=== PATIENT | male | born 1955 | race Caucasian/White ===

== ENCOUNTER → 2020-05-07 | Outpatient (CLI) | payer BC | LOC: KOH-I 15:53 | DX: M51.16 Intervertebral disc disorders with radiculopathy, lumbar region (principal); M41.9 Scoliosis, unspecified; M47.26 Other spondylosis with radiculopathy, lumbar region | CPT/HCPCS: 72148 ==

== ENCOUNTER → 2020-11-19 | Outpatient (CLI) | payer BC | LOC: MRI 12:53 | DX: Z01.818 Encounter for other preprocedural examination (principal); M51.34 Other intervertebral disc degeneration, thoracic region; M51.36 Other intervertebral disc degeneration, lumbar region; M47.814 Spondylosis without myelopathy or radiculopathy, thoracic region; M48.04 Spinal stenosis, thoracic region; M85.80 Other specified disorders of bone density and structure, unspecified site | CPT/HCPCS: 72128; 72131; 72146; 77080 ==

== ENCOUNTER → 2021-05-06 | Outpatient (CLI) | payer BC ==
[2021-05-06 17:08] LABS: HEMOGLOBIN 14.7 gm/dl (14.0-17.5); RED BLOOD COUNT 4.45 M/UL (4.20-5.50); WHITE BLOOD COUNT 4.7 K/UL (4.5-11.0)
[2021-05-08 09:14] LABS: A/G RATIO 1.6 (1.2-2.2); ALKALINE PHOSPHATASE, S 77 IU/L (44-121); ALT (SGPT) 19 IU/L (0-44); AST (SGOT) 19 IU/L (0-40); BILIRUBIN, TOTAL 0.4 mg/dL (0.0-1.2); BUN 11 mg/dL (8-27); BUN/CREATININE RATIO 12 (10-24); CALCIUM, SERUM 9.2 mg/dL (8.6-10.2); CARBON DIOXIDE, TOTAL 24 mmol/L (20-29); CHLORIDE, SERUM 100 mmol/L (96-106); CHOLESTEROL, TOTAL 183 mg/dL (100-199); CREATININE, SERUM 0.92 mg/dL (0.76-1.27); EGFR IF AFRICN AM 99 (>59); EGFR IF NONAFRICN AM 86 (>59); GLOBULIN, TOTAL 2.7 g/dL (1.5-4.5); GLUCOSE, SERUM 99 mg/dL (65-99); HDL CHOLESTEROL 65 mg/dL (>39); LDL CHOLESTEROL CALC 107 mg/dL (0-99); LDL/HDL RATIO 1.6 ratio (0.0-3.6); POTASSIUM, SERUM 4.3 mmol/L (3.5-5.2); PROTEIN, TOTAL, SERUM 7.1 g/dL (6.0-8.5); SODIUM, SERUM 139 mmol/L (134-144); T. CHOL/HDL RATIO 2.8 ratio (0.0-5.0); TRIGLYCERIDES 60 mg/dL (0-149)
[2021-05-08 10:14] LABS: IRON, SERUM 48 ug/dL (38-169); THYROXINE (T4) 9.7 ug/dL (4.5-12.0)
== END ==
LOC: LAB 15:53
PROVIDERS: Family Medicine
DX: Z01.818 Encounter for other preprocedural examination (principal); Z12.5 Encounter for screening for malignant neoplasm of prostate; R00.1 Bradycardia, unspecified; D50.9 Iron deficiency anemia, unspecified; E03.9 Hypothyroidism, unspecified; E78.5 Hyperlipidemia, unspecified; R53.81 Other malaise
CPT/HCPCS: 36415; 71046; 80053; 80061; 83540; 84153; 84436; 84439; 84443; 85027; 85610; 85730; 93005

== ENCOUNTER → 2021-05-27 | Outpatient (CLI) | payer BC ==
[~2021-05-27] MED LIST: LEVOTHYROXINE75 MC1 PO; MEN'S MULTIVIT1 EACH PO
[2021-05-27 13:04] LABS: HEMOGLOBIN 14.6 gm/dl (14.0-17.5); RED BLOOD COUNT 4.34 M/UL (4.20-5.50); WHITE BLOOD COUNT 4.4 K/UL (4.5-11.0)
[2021-05-27 13:37] LABS: BUN/CREATININE RATIO 14 (0-10)
== END ==
LOC: EDSTATUS 12:00 → OPSV2 12:00
PROVIDERS: Orthopaedic Surgery
DX: Z01.812 Encounter for preprocedural laboratory examination (principal); M48.061 Spinal stenosis, lumbar region without neurogenic claudication; M41.86 Other forms of scoliosis, lumbar region
CPT/HCPCS: 80048; 81001; 85025; 85610; 85730; 87081

== ENCOUNTER 2021-06-08 05:24 | Inpatient (IN) | payer BC, MEDICARE ==
[~2021-06-08] VITALS: Ht 177.8 cm; Wt 98.0 kg
[2021-06-08 11:32] LABS: RED BLOOD COUNT 3.68 M/UL (4.20-5.50); WHITE BLOOD COUNT 4.6 K/UL (4.5-11.0)
[2021-06-08 17:52] LABS: HEMOGLOBIN 11.2 gm/dl (14.0-17.5); RED BLOOD COUNT 3.35 M/UL (4.20-5.50)
[2021-06-08 17:54] LABS: WHITE BLOOD COUNT 12.2 K/UL (4.5-11.0)
[2021-06-08 19:30] LABS: HEMOGLOBIN 11.9 gm/dl (14.0-17.5); RED BLOOD COUNT 3.56 M/UL (4.20-5.50); WHITE BLOOD COUNT 10.5 K/UL (4.5-11.0)
[2021-06-08 19:55] LABS: BUN/CREATININE RATIO 11 (0-10)
[2021-06-09 05:17] LABS: HEMOGLOBIN 11.5 gm/dl (14.0-17.5); RED BLOOD COUNT 3.53 M/UL (4.20-5.50); WHITE BLOOD COUNT 11.2 K/UL (4.5-11.0)
[2021-06-09] MEDS ORDERED: LEVOTHYROXINE75 MCG PO (13:42)
[2021-06-09] MEDS ORDERED: MULTI-VITAMIN1 EACH PO (13:43)
--- NOTE | 2021-06-09 17:59 | NUR ---
ASSISTED PATIENT TO THE BEDSIDE AND PATIENT BLOOD PRESSURE WAS HYPOTENSIVE AND PATIENT WAS COMPLAING OF BEING DIZZY AND LIGHTHEADED. PATIENT WAS LAID BACK DOWN FLAT AND SYMPTOMS WERE GONE ONCE LAID DOWN.
[2021-06-10 04:39] LABS: HEMOGLOBIN 9.7 gm/dl (14.0-17.5); WHITE BLOOD COUNT 10.6 K/UL (4.5-11.0)
[2021-06-10 04:53] LABS: RED BLOOD COUNT 2.9 M/UL (4.20-5.50)
[2021-06-10 05:05] LABS: BUN/CREATININE RATIO 15 (0-10)
[2021-06-11 05:23] LABS: HEMOGLOBIN 8.3 gm/dl (14.0-17.5)
[2021-06-11 05:34] LABS: RED BLOOD COUNT 2.48 M/UL (4.20-5.50); WHITE BLOOD COUNT 7.4 K/UL (4.5-11.0)
[2021-06-11 05:46] LABS: BUN/CREATININE RATIO 11 (0-10)
--- NOTE | 2021-06-11 14:49 | NUR ---
RIGHT HEMOVAC REMOVED PER DR. PRECIADO ORDER. PATIENT TOLERATED WELL. SITE CLEANED WITH BETADINE AND REDRESSED ORDERED.
[2021-06-12 05:18] LABS: HEMOGLOBIN 8.7 gm/dl (14.0-17.5); RED BLOOD COUNT 2.6 M/UL (4.20-5.50); WHITE BLOOD COUNT 6.6 K/UL (4.5-11.0)
[2021-06-12 05:49] LABS: BUN/CREATININE RATIO 12 (0-10)
[2021-06-12 07:31] LABS: RED BLOOD COUNT 2.72 M/UL (4.20-5.50); WHITE BLOOD COUNT 7.7 K/UL (4.5-11.0)
--- NOTE | 2021-06-12 07:45 | NUR ---
0706: PATIENT WAS PLACED IN CHAIR AT 0630 BY CONTROLS TECHNICIAN NURSE. THE PATIENT WAS NOT EXPERIENCING ANY SYMPTOMS OF HYPOTENSION AND BLOOD PRESSURE WAS WITHIN NORMAL LIMITS. PATIENTS ALERTS ME THAT THE PATIENT DOES NOT FEEL WELL AND NEEDS TO BE PUT BACK IN BED. I IMMEDIATLEY FOLLOWED THE INTO THE PATIENT ROOM WHERE I FIND THE PATIENT PALE, WEAK AND UNRESPONSIVE IN THE CHAIR. I CALLED FOR HELP TO PLACE THE PATIENT BACK IN THE BED AND THE PATIENT BEGAN EXPERIENCING BRADYCARDIA WITH THE LOWEST HR OBSERVED AT 32 BPM. THE PATIENT THEN BECAME HYPOTONIC AND GASPING FOR AIR. WITH THE ASSISTANCE OF NURSING STAFF THE PATIENT WAS PLACED BACK INTO THE BED SAFELY AND PADS WHERE APPLIED TO THE PATIENT APPROPIATLEY TO MONITOR HIS HR ON THE ZOLL MONITOR CONNECTED TO THE CRASH CART. IV ACCESS WAS THEN ESTABLISHED IN THE CASE THAT EMERGENCY MEDICATIONS ARE NEEDED. THE PATIENT BECAME RESPONSIVE AGAIN ONCE HE PLACED BACK INTO THE BED INTO A SUPINE POSITION. ONCE THE PATIENT WAS ALERT HE WAS ABLE TO ANSWER QUESTIONS APPROWILIATLEY AND STATED THAT HE "DID NOT FEEL GOOD". DR. PRECIADO WAS NOTIFIED OF THE EVENT. A STAT EKG, CARDIAC ENZYMES, HGB ADN HCT WERE OBTAINED AND CARDIOLOGY WAS CONSULTED AND NOTIFIED OF THE CONSULT. THE PATIENT IS NOW ALERT AND ORIENTED BUT STILL STATES THAT HE FEELS "WEAK AND TIRED". HR AND BLOOD PRESSURE ARE WITHIN NORMAL LIMITS AND THE PATIENT WILL CONTINUE TO BE MONITORED WITH CONTINUOUS TELEMETRY MONITORING.
[2021-06-13 05:41] LABS: HEMOGLOBIN 8.1 gm/dl (14.0-17.5)
[2021-06-13 05:56] LABS: RED BLOOD COUNT 2.44 M/UL (4.20-5.50); WHITE BLOOD COUNT 5.7 K/UL (4.5-11.0)
[2021-06-13 06:10] LABS: BUN/CREATININE RATIO 12 (0-10)
[2021-06-14 05:23] LABS: HEMOGLOBIN 7.8 gm/dl (14.0-17.5); RED BLOOD COUNT 2.34 M/UL (4.20-5.50); WHITE BLOOD COUNT 5.8 K/UL (4.5-11.0)
[2021-06-14 05:57] LABS: BUN/CREATININE RATIO 10 (0-10)
[2021-06-14] MEDS ORDERED: MIDODRINE HCL5 MG PO (07:29)
[2021-06-14] MEDS ORDERED: OXYCODONE HCL5 M1 PO (08:25)
[2021-06-14] MEDS ORDERED: FERROUS SULFAT325 M2 PO (10:48)
--- NOTE | 2021-06-14 12:22 | NUR ---
PT FOLLOW UP APPOINTMENTS MADE WITH CARDIOLOGY, ORTHOPEDICS AND THE [facility] PRIMARY DOCTOR.
== END 2021-06-14 11:56 | disposition home or self-care (01) | DRG 454 ==
LOC: OR 05:24 → CCU 20:28
PROVIDERS: Internal Medicine; ADMIT Orthopaedic Surgery
PROC: 0SG1071 Fusion of 2 or more Lumbar Vertebral Joints with Autologous Tissue Substitute, Posterior Approach, Posterior Column, Open Approach (ICD-10-PCS; 2021-06-08)
PROC: 0SB40ZZ Excision of Lumbosacral Disc, Open Approach (ICD-10-PCS; 2021-06-08)
PROC: 0RG6071 Fusion of Thoracic Vertebral Joint with Autologous Tissue Substitute, Posterior Approach, Posterior Column, Open Approach (ICD-10-PCS; 2021-06-08)
PROC: 01NB0ZZ Release Lumbar Nerve, Open Approach (ICD-10-PCS; 2021-06-08)
PROC: 0RGA071 Fusion of Thoracolumbar Vertebral Joint with Autologous Tissue Substitute, Posterior Approach, Posterior Column, Open Approach (ICD-10-PCS; 2021-06-08)
PROC: 0SG30AJ Fusion of Lumbosacral Joint with Interbody Fusion Device, Posterior Approach, Anterior Column, Open Approach (ICD-10-PCS; 2021-06-08)
PROC: B24BZZZ Ultrasonography of Heart with Aorta (ICD-10-PCS; 2021-06-08)
PROC: 4A11X4G Monitoring of Peripheral Nervous Electrical Activity, Intraoperative, External Approach (ICD-10-PCS; 2021-06-08)
PROC: 30233N1 Transfusion of Nonautologous Red Blood Cells into Peripheral Vein, Percutaneous Approach (ICD-10-PCS; principal; 2021-06-08 07:30)
PROC: 0SG30AJ Fusion of Lumbosacral Joint with Interbody Fusion Device, Posterior Approach, Anterior Column, Open Approach (ICD-10-PCS; 2021-06-08 07:30)
DX: M41.86 Other forms of scoliosis, lumbar region (principal); D62 Acute posthemorrhagic anemia; M54.16 Radiculopathy, lumbar region; Z20.822 Contact with and (suspected) exposure to COVID-19; E03.9 Hypothyroidism, unspecified; R00.1 Bradycardia, unspecified; M43.16 Spondylolisthesis, lumbar region; I07.1 Rheumatic tricuspid insufficiency; M48.061 Spinal stenosis, lumbar region without neurogenic claudication; C44.90 Unspecified malignant neoplasm of skin, unspecified; I95.1 Orthostatic hypotension; Z98.890 Other specified postprocedural states
CPT/HCPCS: ECHO; 36415; 72100; 72110; 76000; 80048; 80053; 82550; 82553; 83540; 83550; 83735; 83880; 84484; 85007; 85027; 85384; 85610; 85730; 93005; 93306; 97116-GP-CQ; 97161; 97166; 97530; 97530-GP-CQ; 97535; C1713; C1762; J0461; J0690; J1100; J1170; J1644; J2001; J2250; J2370; J2405; J2704; J3010; J3370; J7030; J7040; J7120; P9016; P9017; P9045; P9047